=== PATIENT | male | born 1960 | race Caucasian/White ===

== ENCOUNTER 2020-01-15 18:37 | Emergency (ER) | payer MEDICARE, SELFPAY ==
[2020-01-15 19:29] VITALS: BP 98/62; PULSE 67; RESP 18; TEMP 36.6; O2SAT 96; BMI 25.4
--- NOTE | 2020-01-15 19:40 | ED.WOUNDLAC ---
HPI - Wound/Laceration General Chief Complaint: Fall Stated Complaint: post op knee bleeding,fall Time Seen by Provider: 01/15/20 19:21 History of Present Illness HPI narrative: Patient with past history of CVA leaving left sided weakness tripped and fell in a restaurant cutting his left knee, he is not complaining of any significant pain in the knee he has no other injury no other complaints and denies any new weakness, no preceding dizziness chest pain or headache and feels to be in his normal state of health Related Data Allergies Allergy/AdvReac Type Severity Reaction Status Date / Time No Known Allergies Allergy Unverified 11/09/19 16:07 Review of Systems Review of Systems: No headache no head injury and no vision changes no confusion no nausea no vomiting no dizziness no new weakness no chest pain no palpitations no shortness of breath no nausea no vomiting Yes all other systems are reviewed and are negative [facility] Past Medical History Attestation statement: The following information was validated with the patient. [facility] Narrative: Prior history of stroke Medical History (Updated 01/15/20 @ 20:25 by ALEJANDRA Garcia) Aortic valvar stenosis Diabetes Stroke Social History Social History Alcohol intake: current Alcohol intake frequency: 0-2 drinks per day Alcohol type: beer Use of substances other than those prescribed or required for medical reasons: No Advance Directives: No Advance Directives Information Provided: Yes Physical Exam Vital Signs: Vital Signs: Last Vital Signs Temp 97.8 F 01/15/20 20:34 Pulse 72 01/15/20 20:34 Resp 16 01/15/20 20:34 BP 101/64 01/15/20 20:34 Pulse Ox 96 01/15/20 20:34 Body Mass Index 25.4 Patient is A&O x3, comfortable, no acute distress exam normocephalic atraumatic Neck is supple Respiratory no acute respiratory distress The left knee has a vertical 3.5 cm subcutaneous laceration but no bony tenderness no swelling the patient can flex and extend the knee, vascular is intact distal No evidence of any other extremity injury Skin no other lacerations Course Course Course Narrative: Patient remains comfortable and relaxed throughout visit Procedure note the 3.5 cm vertical left knee laceration is cleansed and irrigated with normal saline, no foreign body seen Anesthesia was 12 cc of 1% lidocaine The wound was closed with 73.0 nylon sutures and nakia with bleeding controlled, no complication Discharge Plan Discharge Clinical Impression: Laceration of knee, left Qualifiers: Encounter type: initial encounter Qualified Code(s): S81.012A - Laceration without foreign body, left knee, initial encounter Patient Disposition: Home, Self-Care Additional Instructions: Mix of stitches and nakia should be removed in 12-14 days Return any time for redness, swelling, pain, discharge from wound, red stripe up leg, any sign of infection any concerns Interventions: ED Discharge Assessment Last Done: 01/15/20 20:40 Discharge Date/Time: 01/15/20 20:40
[2020-01-15] MEDS: Lidocaine HCl 1 % MPF 5 ML VIAL SUBCUT ×3 (19:44→19:45)
[2020-01-15 20:34] VITALS: BP 101/64; PULSE 72; RESP 16; TEMP 36.6; O2SAT 96
== END 2020-01-15 20:40 | disposition home or self-care (01) ==
PROVIDERS: Emergency Provider Internal Medicine
DX: S81.012A Laceration without foreign body, left knee, initial encounter (principal); M25.562 Pain in left knee; W01.0XXA Fall on same level from slipping, tripping and stumbling without subsequent striking against object, initial encounter; Y93.9 Activity, unspecified; Y92.511 Restaurant or cafe as the place of occurrence of the external cause
CPT/HCPCS: 99284

== ENCOUNTER 2020-07-01 08:22 | Emergency (ER) | payer OTHER, MEDICARE, SELFPAY ==
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
[2020-07-01 09:00] VITALS: BP 130/78; PULSE 108; RESP 19; TEMP 36.6; O2SAT 95; BMI 25.4
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
[2020-07-01 11:43] VITALS: PULSE 89; RESP 18; O2SAT 99
== END 2020-07-01 11:49 | disposition home or self-care (01) ==
PROVIDERS: Emergency Provider Emergency Medicine; PCP Internal Medicine
DX: M54.12 Radiculopathy, cervical region (principal); E11.9 Type 2 diabetes mellitus without complications; Z86.73 Personal history of transient ischemic attack (TIA), and cerebral infarction without residual deficits
CPT/HCPCS: 70450; 72125; 99283; 99284